=== PATIENT | male | born 1990 | race Caucasian/White ===

== ENCOUNTER 2016-11-19 13:08 | Emergency (ER) | payer MEDICAID ==
[~2016-11-19] VITALS: Ht 167.6 cm; Wt 83.0 kg
[2016-11-19] MEDS ORDERED: SULFAMETHOXAZOLE/TRIMETHOPRIM 400/80MG TAB PO ONE (14:30)
[2016-11-19] MEDS ORDERED: KETOROLAC 60MG/2ML VIAL IM ONE (14:30)
[2016-11-19] MEDS ORDERED: BACITRACIN ZINC OINT UDPKT TOP ONE (14:30)
[2016-11-19] MEDS ORDERED: LIDOCAINE HCL 1%/EPI 1:200,000 30 ML VIAL MC ONE (14:30)
[2016-11-19] MEDS ORDERED: CEPHALEXIN 500MG CAPSULE PO ONE (14:30)
[2016-11-19 14:41] VITALS: BP 143/99
[2016-11-19] MEDS ORDERED: CEPHALEXIN 500MG CAPSULE PO NR (15:00)
== END 2016-11-19 16:54 | disposition home or self-care (01) ==
LOC: ER 15:31
DX: L02.413 Cutaneous abscess of right upper limb (principal); F12.10 Cannabis abuse, uncomplicated; Z72.0 Tobacco use
CPT/HCPCS: 10060; 73060; 87070; 87077; 87205; 96372; 99285; J1885

== ENCOUNTER 2016-11-24 14:31 | Emergency (ER) | payer MEDICAID ==
[~2016-11-24] VITALS: Ht 167.6 cm; Wt 82.0 kg
[2016-11-24 14:51] VITALS: BP 121/73
== END 2016-11-24 21:27 | disposition left against medical advice (07) ==
LOC: ER 21:16
DX: Z48.00 Encounter for change or removal of nonsurgical wound dressing (principal); Z53.21 Procedure and treatment not carried out due to patient leaving prior to being seen by health care provider

== ENCOUNTER 2017-03-14 16:20 | Emergency (ER) | payer MEDICAID ==
[~2017-03-14] VITALS: Ht 167.6 cm; Wt 77.0 kg
[2017-03-14 16:32] VITALS: BP 131/97
== END 2017-03-14 19:30 | disposition left against medical advice (07) ==
LOC: ER 16:50
DX: Z04.8 Encounter for examination and observation for other specified reasons (principal); Z53.21 Procedure and treatment not carried out due to patient leaving prior to being seen by health care provider